=== PATIENT | female | born 1985 | race Hispanic/Latino ===

== ENCOUNTER 2023-10-16 15:25 | Emergency (ER) | payer SELFPAY ==
[2023-10-16 15:28] VITALS: BP 115/80
--- NOTE | 2023-10-16 16:33 | ED.GENMED ---
History of Present Illness
General
Chief Complaint: Musculo-Skeletal Complaint
Time Seen by Provider: 10/16/23 16:14
Travel History
Have you had any contact with someone who has COVID-19?: No
Do you have any symptoms of coronavirus? Fever > 100 degrees, chills, cough, shortness of breath, sore throat, loss of taste or smell, muscle aches, or headache?: No
History of Present Illness
History of Present Illness:
38-year-old female presents to the emergency department for evaluation of left heel pain ongoing for the past 3 weeks. Pain is predominantly when ambulating. Denies any trauma. She does ambulate and stand for extended periods of time throughout
the day. Denies any acute traumatic injuries. Not take any medications for pain. She is Estonian-speaking however her son interprets for her
Past History
Past History
ED Past Medical History: None
Social History
Tobacco: Non-smoker
Living: with family
Review of Systems
Review of Systems
Allergies reviewed?: Yes
All Other Systems: ROS reviewed and negative except as documented in HPI and ROS
Phy Exam
Physical Exam
Physical Exam:
GEN: Well appearing, NAD, WDWN
HEENT: Oral mucosa moist, no scleral icterus
Cardiac: Regular rate
Lung: No respiratory distress, no tachypnea
MSK: No gross deformity or injuries. Tenderness along the plantar fascia of the left heel, no Achilles tendon tenderness
Skin: Good color, no pallor or jaundice, no rashes
Neuro: AO x3, moves all extremities freely
Psych: Calm, cooperative
Course
Orders/Labs/Results
Orders:
Orders
10/16/23 15:32
Heel, Left 2 View [CR Heel/os Calcis - Left 2 Vw*] Urgent
Comment:
Reason For Exam: swelling and pain w/o injury
Vital Signs
Initial and Last Documented VS:
Initial Vital Signs
Temp Pulse Resp BP Pulse Ox
98.3 F 68 20 115/80 100
10/16/23 15:28 10/16/23 15:28 10/16/23 15:28 10/16/23 15:28 10/16/23 15:28
Last Documented Vital Signs
Temp Pulse Resp BP Pulse Ox
98.3 F 68 20 115/80 100
10/16/23 15:28 10/16/23 15:28 10/16/23 15:28 10/16/23 15:28 10/16/23 15:28
MDM/Problems Addressed
MDM/Problems Addressed:
Exam findings consistent with plantar fasciitis likely due to repetitive trauma from work. Discussed NSAIDs and supportive therapy, outpatient podiatry follow-up if not improving
*Critical Care Note
Total Time (30-74mins, 75-104mins- exclusive of procedures): Not Applicable
ED Attending Note
-
Portions of this chart may have been created with voice recognition software.� Occasional wrong word or��sound alike� substitutions may have occurred due to the inherent limitations of voice recognition software.
Discharge Plan
Departure
Patient Disposition: Home (Routine Discharge)
Date of Disposition: 10/16/23
Time of Disposition: 16:33
Patient with high blood pressure during this ER visit?: No
Discharge Problem:
Plantar fasciitis of left foot
Prescriptions:
New
diclofenac sodium 75 mg tablet,delayed release (DR/EC)
75 mg PO BID Qty: 20 0RF
No Action
ibuprofen 600 MG tablet
600 mg PO Q6 Qty: 20 0RF
diazepam 5 MG tablet
5 mg PO TIDPRN PRN (Reason: muscle spasm) Qty: 12 0RF
prednisone 50 mg tablet
50 mg PO DAILY Qty: 4 0RF
Referrals:
Juan Veras DPM [Specified Professional Personl] - As needed
Sy Hernandez MD [Family Provider] -
Interventions
Interventions:
*Risk Screen - Suicide Last Done: 10/16/23 16:08
*General Assessment Last Done: 10/16/23 16:08
*Neglect/Abuse Screening Last Done: 10/16/23 16:08
ED- Fall Risk Assessment Last Done: 10/16/23 16:08
*ED COVID-19 Vaccine History Last Done: 10/16/23 16:08
*Nursing Disposition Last Done: 10/16/23 16:42
ED-Musculoskeletal Assessment Last Done: 10/16/23 16:08
Discharge Date and Time
Discharge Date/Time: 10/16/23 16:43
Print Language: PORTUGUESE
== END 2023-10-16 16:43 | disposition home or self-care (01) ==
LOC: EMR 15:25
PROVIDERS: EMERGENCY PHYSICIAN Emergency Medicine; FAMILY PHYSICIAN Family Medicine
DX: M72.2 Plantar fascial fibromatosis (principal)
CPT/HCPCS: 99283; 73650

== ENCOUNTER → 2023-10-25 06:29 | Outpatient (REF) | payer OTHER, SELFPAY ==
[2023-10-25 07:48] LABS: % Basophils 0.4 % (0-2); % Immature Granulocytes 0.3 % (0-0.5); % Monocytes 5.4 % (1.7-9.3); % Neutrophils 54.9 % (42.2-75.2); Absolute Eosinophils 0.2 10^3/uL (0-0.7); Absolute Lymphocytes 2.5 10^3/uL (1.2-3.4); Absolute Monocytes 0.4 10^3/uL (0.1-0.6); Absolute Neutrophils 3.9 10^3/uL (1.4-6.5); Hematocrit 37.7 % (37.0-47.0); Hemoglobin 12.8 g/dL (12.0-16.0); Mean Corpuscular Hgb 28.6 pg (27.0-31.0); Mean Corpuscular Volume 84.3 fL (81.0-99.0); Mean Platelet Volume 9.1 fL (7.4-10.4); Nucleated Red Blood Cells % 0 %; Platelet Count 312 10^3/uL (130-400); Red Blood Cell Count 4.47 10^6/uL (4.20-5.40); Red Cell Dist. Width 14.4 % (11.5-14.5); White Blood Cell Count 7.1 10^3/uL (4.8-10.8)
[2023-10-25 08:04] LABS: ALT (SGPT) 43 U/L (0-35); AST (SGOT) 31 U/L (14-36); Albumin 3.8 g/dl (3.5-5.0); Alkaline Phosphatase 111 U/L (38-126); Blood Urea Nitrogen 19 mg/dl (7-17); Calcium 9.7 mg/dl (8.4-10.2); Carbon Dioxide 22 mmol/L (22-30); Chloride 104 mmol/L (98-107); Glucose 94 mg/dl (70-99); Potassium 4.5 mmol/L (3.5-5.1); Sodium 139 mmol/L (135-145); Total Bilirubin 0.8 mg/dl (0.2-1.3); Total Protein 6.9 g/dl (6.3-8.2); eGFR > 60.00
[2023-10-25 09:21] LABS: Erythrocyte Sed Rate 22 mm/hour (0-20)
== END ==
LOC: CLINIC 06:29
PROVIDERS: ATTENDING PHYSICIAN Internal Medicine; FAMILY PHYSICIAN Nurse Practitioner Adult Health
DX: A15.9 Respiratory tuberculosis unspecified (principal); D63.8 Anemia in other chronic diseases classified elsewhere; D84.9 Immunodeficiency, unspecified; G89.29 Other chronic pain; K75.9 Inflammatory liver disease, unspecified; M05.79 Rheumatoid arthritis with rheumatoid factor of multiple sites without organ or systems involvement; M25.511 Pain in right shoulder; M25.531 Pain in right wrist; M25.532 Pain in left wrist; M25.561 Pain in right knee; M25.572 Pain in left ankle and joints of left foot; R73.9 Hyperglycemia, unspecified; Z22.7 Latent tuberculosis; Z51.81 Encounter for therapeutic drug level monitoring
CPT/HCPCS: 36415; 80053; 85025; 85652; 86140

== ENCOUNTER → 2023-11-30 07:02 | Outpatient (REF) | payer OTHER, SELFPAY ==
[2023-11-30 09:16] LABS: ALT (SGPT) 23 U/L (0-35); AST (SGOT) 23 U/L (14-36); Albumin 3.9 g/dl (3.5-5.0); Alkaline Phosphatase 108 U/L (38-126); Blood Urea Nitrogen 12 mg/dl (7-17); Carbon Dioxide 24 mmol/L (22-30); Chloride 104 mmol/L (98-107); GGTP 30 U/L (12-43); Glucose 82 mg/dl (70-99); Potassium 4.3 mmol/L (3.5-5.1); Sodium 133 mmol/L (135-145); Total Protein 6.7 g/dl (6.3-8.2); eGFR > 60.00
[2023-11-30 09:39] LABS: Glycohemoglobin (HgbA1c) 5.5 % (4.0-5.6)
== END ==
LOC: CLINIC 07:02
PROVIDERS: ATTENDING PHYSICIAN Nurse Practitioner Adult Health
DX: R73.03 Prediabetes (principal); R74.8 Abnormal levels of other serum enzymes
CPT/HCPCS: 36415; 80053; 82977; 83036

== ENCOUNTER → 2023-12-04 10:45 | Outpatient (REF) | payer OTHER, SELFPAY | LOC: RAD 10:45 | PROVIDERS: ATTENDING PHYSICIAN Podiatrist Foot & Ankle Surgery | DX: M72.2 Plantar fascial fibromatosis (principal) | CPT/HCPCS: 73630 ==

== ENCOUNTER 2023-12-19 15:01 | Outpatient (RCR) | payer OTHER, SELFPAY | END 2023-12-19 23:59 | disposition home or self-care (01) | LOC: RPT 15:01 | PROVIDERS: ATTENDING PHYSICIAN Nurse Practitioner Adult Health | DX: M72.2 Plantar fascial fibromatosis (principal); S86.002D Unspecified injury of left Achilles tendon, subsequent encounter; Z73.6 Limitation of activities due to disability; M62.81 Muscle weakness (generalized); R26.2 Difficulty in walking, not elsewhere classified | CPT/HCPCS: 97010; 97110; 97140; 97162 ==

== ENCOUNTER 2023-12-31 15:05 | Outpatient (RCR) | payer OTHER, SELFPAY | END 2024-01-01 07:45 | disposition home or self-care (01) | LOC: RPT 15:05 | PROVIDERS: ATTENDING PHYSICIAN Nurse Practitioner Adult Health | DX: M72.2 Plantar fascial fibromatosis (principal); S86.002D Unspecified injury of left Achilles tendon, subsequent encounter; Z73.6 Limitation of activities due to disability; R26.2 Difficulty in walking, not elsewhere classified; M62.81 Muscle weakness (generalized); M79.672 Pain in left foot; M79.671 Pain in right foot | CPT/HCPCS: 97010; 97110; 97112; 97140 ==

== ENCOUNTER → 2024-09-07 11:32 | Outpatient (REF) | payer OTHER, SELFPAY ==
[2024-09-07 12:44] LABS: % Basophils 0.6 % (0-2); % Eosinophils 2.1 % (0-6); % Immature Granulocytes 0.3 % (0-0.5); % Lymphocytes 34.9 % (20.5-51.1); % Monocytes 5.5 % (1.7-9.3); % Neutrophils 56.6 % (42.2-75.2); Absolute Basophils 0.1 10^3/uL (0-0.2); Absolute Eosinophils 0.2 10^3/uL (0-0.7); Absolute Lymphocytes 2.8 10^3/uL (1.2-3.4); Absolute Monocytes 0.4 10^3/uL (0.1-0.6); Absolute Neutrophils 4.5 10^3/uL (1.4-6.5); Hematocrit 40.9 % (37.0-47.0); Hemoglobin 13.8 g/dL (12.0-16.0); Mean Corp Hgb Conc. 33.7 g/dL (33.0-37.0); Mean Corpuscular Hgb 28.5 pg (27.0-31.0); Mean Corpuscular Volume 84.3 fL (81.0-99.0); Mean Platelet Volume 8.9 fL (7.4-10.4); Nucleated Red Blood Cells % 0 %; Platelet Count 308 10^3/uL (130-400); Red Blood Cell Count 4.85 10^6/uL (4.20-5.40); Red Cell Dist. Width 14.3 % (11.5-14.5)
[2024-09-07 13:05] LABS: Erythrocyte Sed Rate 39 mm/hour (0-20)
[2024-09-07 13:10] LABS: ALT (SGPT) 27 U/L (0-35); AST (SGOT) 28 U/L (14-36); Albumin 4.4 g/dl (3.5-5.0); Alkaline Phosphatase 172 U/L (38-126); Blood Urea Nitrogen 15 mg/dl (7-17); Calcium 9.8 mg/dl (8.4-10.2); Carbon Dioxide 28 mmol/L (22-30); Chloride 100 mmol/L (98-107); Glucose 88 mg/dl (70-99); Potassium 4.7 mmol/L (3.5-5.1); Sodium 140 mmol/L (135-145); Total Bilirubin 0.9 mg/dl (0.2-1.3); Total Protein 7.7 g/dl (6.3-8.2); eGFR > 60.00
[2024-09-07 19:49] LABS: Hepatitis B Surface Antigen Negative (Negative)
[2024-09-07 20:07] LABS: Hepatitis B Surface Antibody Negative
[2024-09-08 10:45] LABS: Hepatitis C Antibody Negative (Negative)
[2024-09-10 07:25] LABS: CCP Antibody IgG/IgA 176 Units (0-19)
== END ==
LOC: CLINIC 11:32
PROVIDERS: ATTENDING PHYSICIAN Student in an Organized Health Care Education/Training Program; FAMILY PHYSICIAN Nurse Practitioner Adult Health
DX: A15.9 Respiratory tuberculosis unspecified (principal); D63.8 Anemia in other chronic diseases classified elsewhere; D84.9 Immunodeficiency, unspecified; G89.29 Other chronic pain; K75.9 Inflammatory liver disease, unspecified; M05.79 Rheumatoid arthritis with rheumatoid factor of multiple sites without organ or systems involvement; M25.511 Pain in right shoulder; M25.531 Pain in right wrist; M25.532 Pain in left wrist; M25.561 Pain in right knee; M25.572 Pain in left ankle and joints of left foot; R73.9 Hyperglycemia, unspecified; Z22.7 Latent tuberculosis; Z51.81 Encounter for therapeutic drug level monitoring
CPT/HCPCS: 36415; 80053; 85025; 85652; 86140; 86200; 86430; 86706; 86803; 87340; 87522

== ENCOUNTER 2024-09-29 17:33 | Emergency (ER) | payer SELFPAY ==
[2024-09-29 17:42] VITALS: BP 109/70
--- NOTE | 2024-09-29 17:47 | ED.GENMED ---
ED Provider Triage
<Yola Phillips PA-C - Last Filed: 09/29/24 17:49>
-
Patient seen by provider in Triage?: Seen in Triage
Attestation: A medical screening examination has been initiated by a qualified medical provider. Based on the assessment performed at this time, it has been determined that an emergent medical condition may exist and the patient has been informed
that further medical evaluation and possible additional diagnostic testing may be needed.
HPI: 39yoF here with a rash x 1 day. Diffuse red itchy rash. Had a fever 2 days ago. C/o headache. No vomiting/diarrhea or shortness of breath.
GENERAL: Alert , in no apparent distress
EYE: No visual abnormalities.
NECK: Trachea midline
ENT: No visible abnormalities.
LUNGS: No acute respiratory distress
NEUROLOGICAL: Alert and oriented
SKIN: Skin intact. No visible changes.
MUSCULOSKELETAL: Moving extremities normally
PSYCH: Normal and appropriate interaction.
This is a medical evaluation conducted in person to initiate diagnostic evaluation and provide initial therapeutics. Please see further documentation by the treating clinician.
No wheezing or signs of anaphylaxis on exam.
History of Present Illness
<Yola Phillips PA-C - Last Filed: 09/29/24 17:49>
General
Chief Complaint: Allergic Reaction
Time Seen by Provider: 09/29/24 17:57
<WESTLEY Villalobos - Last Filed: 09/29/24 20:19>
General
Source: patient and slat basket maker helper machine (Son)
Exam Limitations: other (language barrier with patient)
History of Present Illness
History of Present Illness:
This is a 39 year old female that comes in with c/o rash. Son states that she is having some type of allergic reaction. States that she has spots all over her body. States that this is a little itchy. States that she is feeling cold and has had a
headache on and off since yesterday. States that the headache is all over head head and behind her eyes. Denies any new soaps, Lotions or detergents. States that she had a fever on Saturday of 100, has had chills, some nausea with the headache. Denies
any chest pain, SOB, abd pain, vomiting, diarrhea, dizziness, urinary burning.
Past History
<Yola Phillips PA-C - Last Filed: 09/29/24 17:49>
Past History
ED Past Medical History: None
Social History
Tobacco: Non-smoker
Living: with family
<WESTLEY Villalobos - Last Filed: 09/29/24 20:19>
Past History
ED Past Medical History: Negative Asthma, HTN, Hypercholesterolemia or NIDDM
ED Past Surgical History: Gynecological (Tubal ligation)
Social History
Tobacco: Non-smoker
Alcohol: None
Personal:
Living: with family
Review of Systems
<WESTLEY Villalobos - Last Filed: 09/29/24 20:19>
Review of Systems
All Other Systems: ROS reviewed and negative except as documented in HPI and ROS
Constitutional: Reports fever and chills
EENT: Reports no symptoms
Respiratory: Reports no symptoms; Denies cough or trouble breathing
Cardiac: Reports no symptoms; Denies chest pain
ABD/GI: Reports nausea; Denies abdominal pain, vomiting or diarrhea
: Reports no symptoms; Denies dysuria, frequency or urgency
Musculoskeletal: Reports no symptoms
Skin: Reports no symptoms
Neurological: Reports headache; Denies dizzy
Psychiatric: Reports no symptoms
Phy Exam
<WESTLEY Villalobos - Last Filed: 09/29/24 20:19>
General Physical Exam
General Presentation: no apparent distress
General age: appears stated age
General Skin: warm and dry
General Habitus: normal
General Mental: alert
General Hydration: appears well hydrated
ENT Exam
ENT Exam: TM's normal, pharynx normal and neck supple
Eye Exam
Eye Exam: EOMI
Cardiovascular Exam
Cardiovascular Exam: regular rate/rhythm, no edema, no murmur and normal peripheral pulses
Pulmonary Exam
Pulmonary Exam: lungs clear, no respiratory distress, no rales, chest non tender, no crackles, no rhonchi, no wheezing and no cough
Gastrointestinal Exam
Gastrointestinal Exam: normal bowel sounds, non tender, soft, no organomegaly, no pulsatile mass and non distended
Musculoskeletal Exam
Musculoskeletal Exam: full ROM and no edema
Skin Exam
Skin Exam: warm/dry, no petechia and other (Red spots unraised on arms, legs and [place])
Psychiatric Exam
Psychiatric Exam: normal mood/affect
Course
<Yola Phillips PA-C - Last Filed: 09/29/24 17:49>
Orders/Labs/Results
Orders:
Orders
09/29/24 17:45
CONSULT Urgent
09/29/24 18:30
Dexamethasone Sod Phosphate [Decadron] 20 mg IV NOW STA
Diphenhydramine [Benadryl] 25 mg IV NOW STA
Famotidine [Pepcid] 20 mg IV NOW STA
09/29/24 18:35
Ondansetron Injectable [Zofran] 4 mg IV NOW STA
09/29/24 19:26
COVID-19 Antigen Urgent
Source: Nasal Swab
Influenza A+B Rapid Molecular Urgent
SANDY Source: Nasal Swab
Specimen Description:
Vital Signs
Initial and Last Documented VS:
Initial Vital Signs
Temp Pulse Resp BP Pulse Ox
99.3 F 87 18 109/70 100
09/29/24 17:42 09/29/24 17:42 09/29/24 17:42 09/29/24 17:42 09/29/24 17:42
Last Documented Vital Signs
Temp Pulse Resp BP Pulse Ox
98.5 F 85 18 107/63 100
09/29/24 17:57 09/29/24 17:57 09/29/24 17:57 09/29/24 17:57 09/29/24 19:11
<WESTLEY Villalobos - Last Filed: 09/29/24 20:19>
Orders/Labs/Results
Orders:
Orders
09/29/24 17:45
CONSULT Urgent
09/29/24 18:30
Dexamethasone Sod Phosphate [Decadron] 20 mg IV NOW STA
Diphenhydramine [Benadryl] 25 mg IV NOW STA
Famotidine [Pepcid] 20 mg IV NOW STA
09/29/24 18:35
Ondansetron Injectable [Zofran] 4 mg IV NOW STA
09/29/24 19:26
COVID-19 Antigen Urgent
Source: Nasal Swab
Influenza A+B Rapid Molecular Urgent
SANDY Source: Nasal Swab
Specimen Description:
COVID and Influenza Negative
Vital Signs
Initial and Last Documented VS:
Initial Vital Signs
Temp Pulse Resp BP Pulse Ox
99.3 F 87 18 109/70 100
09/29/24 17:42 09/29/24 17:42 09/29/24 17:42 09/29/24 17:42 09/29/24 17:42
Last Documented Vital Signs
Temp Pulse Resp BP Pulse Ox
98.5 F 85 18 107/63 100
09/29/24 17:57 09/29/24 17:57 09/29/24 17:57 09/29/24 17:57 09/29/24 19:11
<WESTLEY Villalobos - Last Filed: 09/29/24 20:19>
MDM/Problems Addressed
Differential Diagnosis Includes:
Allergic reaction, Viral syndrome rash
MDM/Problems Addressed:
This is a 39 year old female that comes in with son with c/o rash all over her body and a headache that started yesterday. States that the headache comes and goes and the rash is slightly itchy. Denies any new soaps, lotions or detergents. States
that she has had a fever since Saturday low grade
Will give Pepcid, Decadron and Benadryl. Will also check for COVID and Influenza. Explained that this may be a viral rash and will just need to run its course
Back to see patient. Explained that she is negative for COVID and Flu. This may be a viral rash and will go away on its own. Patient to follow up in the Clinic. Will have patient use Pepcid to decrease the histamine release. Patient can use Benadryl
but will make her sleepy and can go through the breast milk. Patient to return with any concerns.
Chronic conditions affecting care:
NA
Acute Exacerbation and/or Progression of Chronic Illness:
NA
<WESTLEY Villalobos - Last Filed: 09/29/24 20:19>
*Pulse Oximetry
Patient hypoxic: no
*EKG
Interpreted by ED Provider?: NA
Rate: EKG- N/A
*Reactor Operator Interpretation
Rate: Reactor Operator- N/A
*Critical Care Note
Total Time (30-74mins, 75-104mins- exclusive of procedures): Not Applicable
ED Attending Note
<Yola Phillips PA-C - Last Filed: 09/29/24 17:49>
-
Portions of this chart may have been created with voice recognition software.� Occasional wrong word or��sound alike� substitutions may have occurred due to the inherent limitations of voice recognition software.
Discharge Plan
Departure
Patient Disposition: Home (Routine Discharge)
Date of Disposition: 09/29/24
Time of Disposition: 20:13
Patient with high blood pressure during this ER visit?: No
Condition: Good
Covid-19: Negative COVID-19
Discharge Problem:
Rash
Instructions: Skin rash - ED discharge instructions
Prescriptions:
No Action
ibuprofen 600 MG tablet
600 mg PO Q6 Qty: 20 0RF
diazepam 5 MG tablet
5 mg PO TIDPRN PRN (Reason: muscle spasm) Qty: 12 0RF
prednisone 50 mg tablet
50 mg PO DAILY Qty: 4 0RF
diclofenac sodium 75 mg tablet,delayed release (DR/EC)
75 mg PO BID Qty: 20 0RF
Referrals:
Mindi Carter, SENIOR MASTER SCHEDULER [Family Provider] - Follow up in 2-3 days
Activity Restrictions/Additional Instructions:
As discussed, you are negative for COVID and Influenza. This may be a viral rash. Please increase your water intake to 8-8oz glasses daily. You may use Pepcid which is over the counter to help decrease the histamine release. You may also use
Benadryl 50mg for the itch but this will make you very tired and can go through the breast milk. Please follow up with the Clinic for further evaluation. IF YOU HAVE ANY OTHER CONCERNS PLEASE RETURN TO THE EMERGENCY ROOM.
Interventions
Interventions:
*Risk Screen - Suicide Last Done: 09/29/24 17:42
*General Assessment Last Done: 09/29/24 17:42
*Neglect/Abuse Screening Last Done: 09/29/24 17:42
*ED COVID-19 Vaccine History Last Done: 09/29/24 17:42
ED- Cardiac Assessment Last Done: 09/29/24 19:11
ED- Pulmonary Assessment Last Done: 09/29/24 19:11
ED-Skin Assessment Last Done: 09/29/24 19:11
Discharge Date and Time
Print Language: ROMANSH
[2024-09-29 17:57] VITALS: BP 107/63
[2024-09-29] MEDS: PEPCID 20 MG IV (18:51)
[2024-09-29] MEDS: ZOFRAN 4 MG IV (18:51)
[2024-09-29] MEDS: BENADRYL 25 MG IV (18:51)
[2024-09-29] MEDS: DECADRON 20 MG IV (18:51)
[2024-09-29 19:56] LABS: COVID-19 Antigen Negative (Negative)
[2024-09-29 20:48] VITALS: BP 99/57
== END 2024-09-29 20:49 | disposition home or self-care (01) ==
LOC: EMR 17:33
PROVIDERS: Clinical Nurse Specialist Family Health; EMERGENCY PHYSICIAN Emergency Medicine; FAMILY PHYSICIAN Nurse Practitioner Adult Health
DX: R21 Rash and other nonspecific skin eruption (principal); L29.9 Pruritus, unspecified; R51.9 Headache, unspecified; R50.9 Fever, unspecified; R11.0 Nausea; Z11.52 Encounter for screening for COVID-19
CPT/HCPCS: 99284; 96374; 96375 ×3; 87502; 87811

== ENCOUNTER 2024-10-01 16:28 | Emergency (ER) | payer SELFPAY ==
[2024-10-01 16:40] VITALS: BP 103/75
[2024-10-01 20:28] VITALS: BP 110/77
--- NOTE | 2024-10-01 21:00 | ED.GENMED ---
History of Present Illness
General
Chief Complaint: Allergic Reaction
Time Seen by Provider: 10/01/24 20:23
History of Present Illness
History of Present Illness:
39-year-old female with history of arthritis presenting with diffuse rash. Patient reports symptoms started on Saturday, 4 days ago. Reports that the rash is itchy in quality. She has not tried any medications for the rash. Denies any new
exposures or detergents. Denies allergic issues in the past. Does note that preceding rash, was taking sulfasalazine, however has taken this medication in the past. She tried taking the medication after the rash started. Reports that her throat
feels itchy, denies difficulty breathing. She was seen in the emergency department on 09/29 given Pepcid, Benadryl, Decadron. Denies abdominal pain or GI symptoms. Does note that she was having low-grade fevers prior to the rash which have since
resolved. Denies any known sick contacts. Denies additional medical complaints
Past History
Past History
ED Past Medical History: None; Negative Asthma, HTN, Hypercholesterolemia or NIDDM
ED Past Surgical History: Gynecological (Tubal ligation)
Social History
Tobacco: Non-smoker
Alcohol: None
Personal:
Living: with family
Phy Exam
Physical Exam
Physical Exam:
General: Well-appearing, no clinical signs of dehydration, nontoxic and in no acute distress
HEENT: protecting airway, no oropharyngeal swelling, uvula midline. No stridorous respirations
Neck: appears supple
CV: Normal heart rate, regular rhythm
Resp: No accessory muscle use, no increased work of breathing, lungs clear to auscultation bilaterally
Abd: No distention
Extremities: No deformities, no swelling
Neuro: alert, no focal neurologic deficit
: deferred
Rectal: deferred
Psych: Normal affect
Skin: Diffuse macular papular rash to extremities, chest, abdomen. No oral mucosal involvement
Course
Orders/Labs/Results
Orders:
Orders
10/01/24 21:07
Prednisone [Deltasone] 60 mg PO NOW STA
10/01/24 21:08
Diphenhydramine [Benadryl] 25 mg PO NOW STA
10/02/24 08:00
Prednisone [Deltasone] 60 mg PO DAILY
Vital Signs
Initial and Last Documented VS:
Initial Vital Signs
Temp Pulse Resp BP Pulse Ox
98.0 F 89 16 103/75 98
10/01/24 16:40 10/01/24 16:40 10/01/24 16:40 10/01/24 16:40 10/01/24 16:40
Last Documented Vital Signs
Temp Pulse Resp BP Pulse Ox
99.5 F 92 18 110/77 99
10/01/24 20:28 10/01/24 20:28 10/01/24 20:28 10/01/24 20:28 10/01/24 20:28
MDM/Problems Addressed
MDM/Problems Addressed:
39-year-old female presenting with concern for diffuse rash. Vital signs on arrival are normal.
On exam patient is well-appearing, nontoxic. Patient does appear to have a diffuse body rash, maculopapular. Diagnostic considerations include allergic reaction versus viral exanthem. Notes that symptoms were preceded by a low-grade fever,
however denies infectious symptoms at this time. Did receive Decadron on the 7th. No concern for anaphylaxis, no respiratory symptoms, no GI symptoms. Was taking sulfasalazine, however reports tolerated this medication in the past. No mucosal
involvement without present concern for TENs or SJS. On review of EMR, it appears that patient was prescribed a steroid which she is not taking. Will represcribe, and otherwise recommending outpatient follow-up with primary care doctor for
reassessment. Strict return precautions communicated and patient verbalized understanding
*Critical Care Note
Total Time (30-74mins, 75-104mins- exclusive of procedures): Not Applicable
ED Attending Note
-
Portions of this chart may have been created with voice recognition software.� Occasional wrong word or��sound alike� substitutions may have occurred due to the inherent limitations of voice recognition software.
Discharge Plan
Departure
Prescriptions:
No Action
ibuprofen 600 MG tablet
600 mg PO Q6 Qty: 20 0RF
diazepam 5 MG tablet
5 mg PO TIDPRN PRN (Reason: muscle spasm) Qty: 12 0RF
prednisone 50 mg tablet
50 mg PO DAILY Qty: 4 0RF
diclofenac sodium 75 mg tablet,delayed release (DR/EC)
75 mg PO BID Qty: 20 0RF
Referrals:
Mindi Carter DEPUTY PROSECUTING ATTORNEY [Family Provider] -
Discharge Date and Time
Print Language: DANISH
[2024-10-01] MEDS: BENADRYL 25 MG PO (21:20)
[2024-10-01] MEDS: DELTASONE 60 MG PO (21:21)
== END 2024-10-01 21:37 | disposition home or self-care (01) ==
LOC: EMR 16:28
PROVIDERS: EMERGENCY PHYSICIAN Student in an Organized Health Care Education/Training Program; FAMILY PHYSICIAN Nurse Practitioner Adult Health
DX: R21 Rash and other nonspecific skin eruption (principal)
CPT/HCPCS: 99283

== ENCOUNTER → 2024-10-05 14:39 | Outpatient (REF) | payer OTHER, SELFPAY ==
[2024-10-05 16:37] LABS: Free T4 0.99 ng/dl (0.78-2.19); Vitamin D, 25-OH*** 22.5 ng/mL (30-80)
[2024-10-05 16:43] LABS: TSH 0.49 uIU/ml (0.47-4.68)
== END ==
LOC: CLINIC 14:39
PROVIDERS: ATTENDING PHYSICIAN Nurse Practitioner Adult Health
DX: R21 Rash and other nonspecific skin eruption (principal)
CPT/HCPCS: 36415; 82306; 84439; 84443

== ENCOUNTER → 2024-11-10 17:01 | Outpatient (REF) | payer OTHER, SELFPAY ==
[2024-11-10 17:30] LABS: % Basophils 0.3 % (0-2); % Eosinophils 3.5 % (0-6); % Immature Granulocytes 0.3 % (0-0.5); % Lymphocytes 38.5 % (20.5-51.1); % Monocytes 3.8 % (1.7-9.3); % Neutrophils 53.6 % (42.2-75.2); Absolute Eosinophils 0.3 10^3/uL (0-0.7); Absolute Lymphocytes 3.3 10^3/uL (1.2-3.4); Absolute Monocytes 0.3 10^3/uL (0.1-0.6); Absolute Neutrophils 4.6 10^3/uL (1.4-6.5); Hematocrit 36.7 % (37.0-47.0); Hemoglobin 12.3 g/dL (12.0-16.0); Mean Corp Hgb Conc. 33.5 g/dL (33.0-37.0); Mean Corpuscular Hgb 30.3 pg (27.0-31.0); Mean Corpuscular Volume 90.4 fL (81.0-99.0); Mean Platelet Volume 8.3 fL (7.4-10.4); Nucleated Red Blood Cells % 0 %; Platelet Count 294 10^3/uL (130-400); Red Blood Cell Count 4.06 10^6/uL (4.20-5.40); Red Cell Dist. Width 14.2 % (11.5-14.5); White Blood Cell Count 8.6 10^3/uL (4.8-10.8)
[2024-11-10 17:51] LABS: ALT (SGPT) 26 U/L (0-35); AST (SGOT) 30 U/L (14-36); Albumin 4.5 g/dl (3.5-5.0); Alkaline Phosphatase 132 U/L (38-126); Blood Urea Nitrogen 16 mg/dl (7-17); Calcium 9.2 mg/dl (8.4-10.2); Carbon Dioxide 27 mmol/L (22-30); Chloride 98 mmol/L (98-107); Glucose 107 mg/dl (70-99); Potassium 3.8 mmol/L (3.5-5.1); Sodium 135 mmol/L (135-145); Total Bilirubin 1.1 mg/dl (0.2-1.3); Total Protein 7.2 g/dl (6.3-8.2); eGFR > 60.00
[2024-11-10 17:57] LABS: Erythrocyte Sed Rate 13 mm/hour (0-20)
== END ==
LOC: CLINIC 17:01
PROVIDERS: ATTENDING PHYSICIAN Student in an Organized Health Care Education/Training Program; FAMILY PHYSICIAN Nurse Practitioner Adult Health
DX: D84.9 Immunodeficiency, unspecified (principal); M05.79 Rheumatoid arthritis with rheumatoid factor of multiple sites without organ or systems involvement; M25.511 Pain in right shoulder; M25.532 Pain in left wrist; M25.572 Pain in left ankle and joints of left foot; Z51.81 Encounter for therapeutic drug level monitoring
CPT/HCPCS: 36415; 80053; 85025; 85652; 86140

== ENCOUNTER → 2025-02-01 16:48 | Outpatient (REF) | payer OTHER, SELFPAY ==
[2025-02-01 18:06] LABS: ALT (SGPT) 19 U/L (0-35); AST (SGOT) 21 U/L (14-36); Albumin 3.8 g/dl (3.5-5.0); Alkaline Phosphatase 108 U/L (38-126); Blood Urea Nitrogen 15 mg/dl (7-17); Calcium 9.2 mg/dl (8.4-10.2); Carbon Dioxide 26 mmol/L (22-30); Chloride 107 mmol/L (98-107); Glucose 97 mg/dl (70-99); Potassium 3.7 mmol/L (3.5-5.1); Sodium 138 mmol/L (135-145); Total Bilirubin 0.7 mg/dl (0.2-1.3); Total Protein 6.7 g/dl (6.3-8.2); eGFR > 60.00
[2025-02-01 18:22] LABS: Vitamin D, 25-OH*** 39.5 ng/mL (30-80)
[2025-02-02 09:33] LABS: Glycohemoglobin (HgbA1c) 5.5 % (4.0-5.6)
== END ==
LOC: CLINIC 16:48
PROVIDERS: ATTENDING PHYSICIAN Nurse Practitioner Adult Health
DX: R73.03 Prediabetes (principal); E55.9 Vitamin D deficiency, unspecified
CPT/HCPCS: 36415; 80053; 82306; 83036

== ENCOUNTER → 2025-02-26 06:21 | Outpatient (REF) | payer OTHER, SELFPAY ==
[2025-02-26 07:09] LABS: % Eosinophils 4.4 % (0-6); % Immature Granulocytes 0.1 % (0-0.5); % Monocytes 5.2 % (1.7-9.3); % Neutrophils 47.3 % (42.2-75.2); Absolute Basophils 0.1 10^3/uL (0-0.2); Absolute Eosinophils 0.3 10^3/uL (0-0.7); Absolute Lymphocytes 3.1 10^3/uL (1.2-3.4); Absolute Monocytes 0.4 10^3/uL (0.1-0.6); Absolute Neutrophils 3.4 10^3/uL (1.4-6.5); Hematocrit 38.9 % (37.0-47.0); Mean Corp Hgb Conc. 33.4 g/dL (33.0-37.0); Mean Corpuscular Hgb 28.9 pg (27.0-31.0); Mean Corpuscular Volume 86.4 fL (81.0-99.0); Mean Platelet Volume 8.7 fL (7.4-10.4); Nucleated Red Blood Cells % 0 %; Platelet Count 310 10^3/uL (130-400); Red Cell Dist. Width 12.7 % (11.5-14.5); White Blood Cell Count 7.3 10^3/uL (4.8-10.8)
[2025-02-26 08:04] LABS: ALT (SGPT) 19 U/L (0-35); AST (SGOT) 23 U/L (14-36); Albumin 4.3 g/dl (3.5-5.0); Alkaline Phosphatase 100 U/L (38-126); Blood Urea Nitrogen 11 mg/dl (7-17); Carbon Dioxide 30 mmol/L (22-30); Chloride 106 mmol/L (98-107); Glucose 88 mg/dl (70-99); Potassium 4.4 mmol/L (3.5-5.1); Sodium 143 mmol/L (135-145); Total Bilirubin 0.9 mg/dl (0.2-1.3); Total Protein 7.4 g/dl (6.3-8.2); eGFR > 60.00
[2025-02-26 08:17] LABS: Erythrocyte Sed Rate 16 mm/hour (0-20)
== END ==
LOC: CLINIC 06:21
PROVIDERS: ATTENDING PHYSICIAN Student in an Organized Health Care Education/Training Program
DX: A15.9 Respiratory tuberculosis unspecified (principal); D63.8 Anemia in other chronic diseases classified elsewhere; D84.9 Immunodeficiency, unspecified; G89.29 Other chronic pain; K75.9 Inflammatory liver disease, unspecified; M05.79 Rheumatoid arthritis with rheumatoid factor of multiple sites without organ or systems involvement; M25.40 Effusion, unspecified joint; M25.511 Pain in right shoulder; M25.531 Pain in right wrist; M25.532 Pain in left wrist; M25.561 Pain in right knee; M25.572 Pain in left ankle and joints of left foot; M79.642 Pain in left hand; R73.9 Hyperglycemia, unspecified; Z22.7 Latent tuberculosis; Z39.1 Encounter for care and examination of lactating mother; Z39.2 Encounter for routine postpartum follow-up; Z51.81 Encounter for therapeutic drug level monitoring
CPT/HCPCS: 36415; 80053; 85025; 85652; 86140; 86480

== ENCOUNTER → 2025-06-10 16:02 | Outpatient (REF) | payer OTHER, SELFPAY ==
[2025-06-10 17:43] LABS: Hematocrit 36.4 % (37.0-47.0); Hemoglobin 12.3 g/dL (12.0-16.0); Mean Corp Hgb Conc. 33.8 g/dL (33.0-37.0); Mean Corpuscular Volume 84.5 fL (81.0-99.0); Nucleated Red Blood Cells % 0 %; Platelet Count 319 10^3/uL (130-400); Red Cell Dist. Width 13.3 % (11.5-14.5)
[2025-06-10 18:05] LABS: ALT (SGPT) 19 U/L (0-35); AST (SGOT) 23 U/L (14-36); Albumin 4.2 g/dl (3.5-5.0); Alkaline Phosphatase 104 U/L (38-126); Blood Urea Nitrogen 12 mg/dl (7-17); Calcium 9.0 mg/dl (8.4-10.2); Carbon Dioxide 26 mmol/L (22-30); Chloride 104 mmol/L (98-107); Glucose 92 mg/dl (70-99); Potassium 4.0 mmol/L (3.5-5.1); Sodium 136 mmol/L (135-145); Total Protein 7.1 g/dl (6.3-8.2); eGFR > 60.00
[2025-06-10 18:07] LABS: C-Reactive Protein 18.40 mg/L (0.0-10.00)
== END ==
LOC: REG 16:02
PROVIDERS: ATTENDING PHYSICIAN Student in an Organized Health Care Education/Training Program; FAMILY PHYSICIAN Nurse Practitioner Adult Health
DX: A15.9 Respiratory tuberculosis unspecified (principal); D63.8 Anemia in other chronic diseases classified elsewhere; D84.9 Immunodeficiency, unspecified; G89.29 Other chronic pain; K75.9 Inflammatory liver disease, unspecified; M05.79 Rheumatoid arthritis with rheumatoid factor of multiple sites without organ or systems involvement; M25.40 Effusion, unspecified joint; M25.511 Pain in right shoulder; M25.531 Pain in right wrist; M25.532 Pain in left wrist; M25.561 Pain in right knee; M25.572 Pain in left ankle and joints of left foot; M79.641 Pain in right hand; M79.642 Pain in left hand; R73.9 Hyperglycemia, unspecified; Z11.1 Encounter for screening for respiratory tuberculosis; Z11.59 Encounter for screening for other viral diseases; Z22.7 Latent tuberculosis; Z23 Encounter for immunization; Z39.1 Encounter for care and examination of lactating mother; Z39.2 Encounter for routine postpartum follow-up; Z51.81 Encounter for therapeutic drug level monitoring
CPT/HCPCS: 36415; 71046; 80053; 85025; 85652; 86140; 86704

== ENCOUNTER → 2025-06-11 06:35 | Outpatient (REF) | payer OTHER, SELFPAY | LOC: CLINIC 06:35 | DX: A15.9 Respiratory tuberculosis unspecified (principal); D63.8 Anemia in other chronic diseases classified elsewhere; D84.9 Immunodeficiency, unspecified; G89.29 Other chronic pain; K75.9 Inflammatory liver disease, unspecified; M05.79 Rheumatoid arthritis with rheumatoid factor of multiple sites without organ or systems involvement; M25.40 Effusion, unspecified joint; M25.511 Pain in right shoulder; M25.561 Pain in right knee; M25.572 Pain in left ankle and joints of left foot; M79.642 Pain in left hand; R73.9 Hyperglycemia, unspecified; Z11.1 Encounter for screening for respiratory tuberculosis; Z11.59 Encounter for screening for other viral diseases; Z22.7 Latent tuberculosis; Z39.2 Encounter for routine postpartum follow-up; Z39.1 Encounter for care and examination of lactating mother; Z51.81 Encounter for therapeutic drug level monitoring | CPT/HCPCS: 36415; 86480 ==

== ENCOUNTER → 2025-09-10 06:21 | Outpatient (REF) | payer OTHER, SELFPAY ==
[2025-09-10 08:34] LABS: Hematocrit 37.5 % (37.0-47.0); Hemoglobin 12.3 g/dL (12.0-16.0); Mean Corp Hgb Conc. 32.8 g/dL (33.0-37.0); Mean Corpuscular Volume 87.2 fL (81.0-99.0); Nucleated Red Blood Cells % 0 %; Platelet Count 305 10^3/uL (130-400); Red Cell Dist. Width 14.3 % (11.5-14.5)
[2025-09-10 08:48] LABS: ALT (SGPT) 39 U/L (0-35); AST (SGOT) 31 U/L (14-36); Albumin 4.3 g/dl (3.5-5.0); Alkaline Phosphatase 114 U/L (38-126); Blood Urea Nitrogen 14 mg/dl (7-17); Calcium 9.2 mg/dl (8.4-10.2); Carbon Dioxide 23 mmol/L (22-30); Chloride 105 mmol/L (98-107); Glucose 89 mg/dl (70-99); Potassium 4.3 mmol/L (3.5-5.1); Sodium 137 mmol/L (135-145); Total Protein 7.2 g/dl (6.3-8.2); eGFR > 60.00
[2025-09-10 08:57] LABS: C-Reactive Protein 10.20 mg/L (0.0-10.00)
== END ==
LOC: CLINIC 06:21
PROVIDERS: ATTENDING PHYSICIAN Student in an Organized Health Care Education/Training Program; FAMILY PHYSICIAN Nurse Practitioner Adult Health
DX: A15.9 Respiratory tuberculosis unspecified (principal); D63.8 Anemia in other chronic diseases classified elsewhere; D84.9 Immunodeficiency, unspecified; G89.29 Other chronic pain; K75.9 Inflammatory liver disease, unspecified; M05.79 Rheumatoid arthritis with rheumatoid factor of multiple sites without organ or systems involvement; M25.40 Effusion, unspecified joint; M25.511 Pain in right shoulder; M25.531 Pain in right wrist; M25.532 Pain in left wrist; M25.561 Pain in right knee; M25.572 Pain in left ankle and joints of left foot; M79.641 Pain in right hand; M79.642 Pain in left hand; R73.9 Hyperglycemia, unspecified; Z11.1 Encounter for screening for respiratory tuberculosis; Z11.59 Encounter for screening for other viral diseases; Z22.7 Latent tuberculosis; Z23 Encounter for immunization; Z39.1 Encounter for care and examination of lactating mother; Z39.2 Encounter for routine postpartum follow-up; Z51.81 Encounter for therapeutic drug level monitoring
CPT/HCPCS: 36415; 80053; 85025; 85652; 86140